=== PATIENT | female | born 1950 | race Caucasian/White ===

== ENCOUNTER 2024-04-22 10:36 | Inpatient (IN) | payer BC, MEDICARE ==
[~2024-04-22] VITALS: Ht 160 cm; Wt 94.3 kg
[~2024-04-22 10:36] MED LIST: AMLO10TA4 PO; ESCI20TA PO; LORA2TAB95 PO; OMEP20CA4 PO
[2024-04-22] MEDS ORDERED: MORPHINE SULFATE INJ 4 MG/ML DISP.SYRIN ONE (10:58)
[2024-04-22] MEDS ORDERED: ONDANSETRON HCL/PF 4 MG/2 ML VIAL ONE (10:58)
[2024-04-22] MEDS: IV NS 0.9% 500 ML BAG IV ONE (11:00)
[2024-04-22] MEDS: ONDANSETRON HCL/PF 4 MG/2 ML VIAL IVP ONE (11:02)
[2024-04-22] MEDS: MORPHINE SULFATE INJ 2 MG/ML DISP.SYRIN IV ONE (11:04)
[2024-04-22 11:06] LABS: BASOPHILS % (AUTO) 0.2 % (0.0-2.0); HEMATOCRIT 32 % (33-45); HEMOGLOBIN 10.5 g/dL (11.5-14.8); LYMPHOCYTES # (AUTO) 1.3 K/uL (0.8-4.8); LYMPHOCYTES % (AUTO) 9.4 % (20.0-44.0); MEAN CORPUSCULAR HEMOGLOBIN 30 PG (26.0-33.0); MEAN CORPUSCULAR HGB CONC 33 g/dl (31.0-36.0); MEAN CORPUSCULAR VOLUME 91 fL (82-100); MONOCYTES # (AUTO) 1.5 K/uL (0.1-1.30); MONOCYTES % (AUTO) 10.6 % (2.0-12.0); NEUTROPHILS # (AUTO) 11.3 K/uL (1.8-8.9); NEUTROPHILS % (AUTO) 79.8 % (43.0-81.0); PLATELET COUNT (AUTO) 618 K/uL (150-450); RED BLOOD CELL COUNT(AUTO) 3.55 MIL/uL (4.0-5.2); RED CELL DISTRIBUTION WIDTH 14.4 % (11.5-15.0); WHITE BLOOD COUNT (AUTO) 14.1 K/uL (4.3-11.0)
[2024-04-22] MEDS ORDERED: IRBE150T28 PO (11:16)
[2024-04-22] MEDS ORDERED: TRAM50TA2 PO (11:16)
[2024-04-22] MEDS ORDERED: LEVO25TA9 PO (11:16)
[2024-04-22] MEDS ORDERED: METO25TA4 PO (11:16)
[2024-04-22] MEDS ORDERED: DIVA500T54 PO (11:16)
[2024-04-22] MEDS ORDERED: SPIR25TA6 PO (11:16)
[2024-04-22] MEDS ORDERED: SUMA100T16 PO (11:16)
[2024-04-22 11:17] LABS: ALANINE AMINOTRANSFERASE 42 U/L (12-78); ALBUMIN 2.5 g/dL (3.4-5.0); ALKALINE PHOSPHATASE 90 U/L (46-116); ASPARTATE AMINOTRANSFERASE 32 U/L (15-37); BILIRUBIN,DIRECT 0.1 mg/dL (0.0-0.2); BILIRUBIN,TOTAL 0.5 mg/dL (0.2-1.0); CARBON DIOXIDE 27 mmol/L (21-32); CHLORIDE 103 mmol/L (98-107); CREATININE 1.1 mg/dL (0.6-1.3); GLUCOSE 119 mg/dL (74-106); POTASSIUM 4.5 mmol/L (3.5-5.1); SODIUM SERUM 136 mmol/L (136-145); TOTAL PROTEIN, SERUM 7.1 g/dL (6.4-8.2); UREA NITROGEN, BLOOD 38 mg/dL (7-18)
[2024-04-22] MEDS ORDERED: APIX5TAB PO (12:07)
[2024-04-22] MEDS: AZITHROMYCIN 500 MG in IV D5W 250 ML IV ONE (12:10)
[2024-04-22 12:16] LABS: APPEARANCE,URINE Clear (CLEAR); BILIRUBIN,URINE Negative (NEGATIVE); BLOOD, URINE Negative Ery/uL (NEGATIVE); COLOR,URINE YELLOW (YELLOW); KETONES,URINE Negative (NEGATIVE); LEUKOCYTE ESTERASE ,URINE Negative (NEGATIVE); NITRITE, URINE Negative (NEGATIVE); PROTEIN,URINE 100 mg/dl (NEGATIVE); UGLUCOSE Negative (NEGATIVE); UROBILINOGEN,URINE 0.2 EU/dL (0.2)
[2024-04-22] MEDS ORDERED: MAG HYDROX/AL HYDROX/SIMETH 30 ML UDC PO PRN (13:00)
[2024-04-22] MEDS ORDERED: ONDANSETRON HCL/PF 4 MG/2 ML VIAL IVP PRN (13:00)
[2024-04-22] MEDS ORDERED: HYDROCODONE/APAP 5/325MG TABLET PO PRN (13:00)
[2024-04-22] MEDS ORDERED: MAGNESIUM HYDROXIDE 30 ML UDC PO PRN (13:00)
[2024-04-22] MEDS ORDERED: Z GUARD REMEDY 4 OZ OINT TP PRN (13:00)
[2024-04-22 13:20] LABS: ADD URINE CULTURE NO; BACTERIA,URINE Rare /HPF (None Seen); RBC,URINE 0-2 /HPF (0-2); SQUAMOUS EPITHELIAL CELL,UR Few /HPF (None Seen); WBC,URINE 0-2 /HPF (0-3)
[2024-04-22] MEDS: PANTOPRAZOLE 40 MG TABLET.DR PO SCH (13:40)
[2024-04-22] MEDS: AZITHROMYCIN 500 MG in IV D5W 250 ML IV SCH (13:41)
[2024-04-22] MEDS: IV NS 0.9% 1,000 ML IV PRN (13:41)
[2024-04-22] MEDS: TRAMADOL HCL 50 MG TABLET PO PRN (13:41)
[2024-04-22 16:00] VITALS: BP 116/78; TEMP 98.2; O2SAT 97
[2024-04-22] MEDS: MORPHINE SULFATE INJ 4 MG/ML DISP.SYRIN IM PRN (16:56)
[2024-04-22 20:00] VITALS: BP 112/57; TEMP 97.5; O2SAT 99
[2024-04-22 21:07] VITALS: BP 112/57; TEMP 97.5; O2SAT 99
[2024-04-23 07:20] LABS: BASOPHILS % (AUTO) 0.3 % (0.0-2.0); EOSINOPHILS # (AUTO) 0.1 K/uL (0.0-0.7); EOSINOPHILS % (AUTO) 0.3 % (0.0-6.0); HEMATOCRIT 30 % (33-45); HEMOGLOBIN 9.7 g/dL (11.5-14.8); LYMPHOCYTES # (AUTO) 2.5 K/uL (0.8-4.8); LYMPHOCYTES % (AUTO) 15.2 % (20.0-44.0); MEAN CORPUSCULAR HEMOGLOBIN 30 PG (26.0-33.0); MEAN CORPUSCULAR HGB CONC 33 g/dl (31.0-36.0); MEAN CORPUSCULAR VOLUME 92 fL (82-100); MONOCYTES # (AUTO) 2.3 K/uL (0.1-1.30); MONOCYTES % (AUTO) 13.8 % (2.0-12.0); NEUTROPHILS # (AUTO) 11.6 K/uL (1.8-8.9); NEUTROPHILS % (AUTO) 70.4 % (43.0-81.0); PLATELET COUNT (AUTO) 567 K/uL (150-450); RED BLOOD CELL COUNT(AUTO) 3.21 MIL/uL (4.0-5.2); RED CELL DISTRIBUTION WIDTH 14.7 % (11.5-15.0); WHITE BLOOD COUNT (AUTO) 16.4 K/uL (4.3-11.0)
[2024-04-23 07:44] LABS: CALCIUM, SERUM 9.2 mg/dL (8.5-10.1); CARBON DIOXIDE 25 mmol/L (21-32); CHLORIDE 105 mmol/L (98-107); GLUCOSE 98 mg/dL (74-106); MAGNESIUM 2.4 mg/dL (1.8-2.4); PHOSPHORUS 2.6 mg/dL (2.5-4.9); POTASSIUM 4.9 mmol/L (3.5-5.1); SODIUM SERUM 139 mmol/L (136-145); UREA NITROGEN, BLOOD 33 mg/dL (7-18)
[2024-04-23 07:47] LABS: CHOLESTEROL 183 mg/dL (<200); HDL CHOLESTEROL 42 mg/dL (40-60); LDL 108 mg/dL (0-99); TRIGLYCERIDES 118 mg/dL (30-150)
[2024-04-23 08:00] VITALS: BP 106/61; TEMP 98.6; O2SAT 98
[2024-04-23 10:07] LABS: EOSINOPHILS % (MANUAL) 1 % (0-4); LYMPHOCYTES % (MANUAL) 13 % (16-48); MONOCYTES % (MANUAL) 7 % (0-11.0); NEUTROPHILS % (MANUAL) 77 (42-76)
[2024-04-23 10:08] LABS: BASOPHILS % (MANUAL) 0 % (0.0-2.0); MYELOCYTES % 1 % (0-0); PLATELET ESTIMATE INCREASED; REACTIVE LYMPHOCYTES 1 % (0-0)
[2024-04-23] MEDS: diphenhydrAMINE HCL/ZINC ACET CREAM 28.3 GM TUBE TP PRN (12:58)
[2024-04-23 16:00] VITALS: BP 122/96; TEMP 98.1; O2SAT 94
[2024-04-23 20:00] VITALS: BP 123/82; TEMP 98.2; O2SAT 93
[2024-04-23] MEDS: ACETAMINOPHEN 325 MG TABLET PO PRN (20:59)
[2024-04-24 07:00] VITALS: BP 118/102; TEMP 98.1; O2SAT 96
[2024-04-24] MEDS ORDERED: LORAZEPAM 1 MG TABLET PO PRN (09:00)
[2024-04-24] MEDS ORDERED: TRAMADOL HCL 50 MG TABLET PO PRN (09:00)
[2024-04-24] MEDS ORDERED: SUMATRIPTAN SUCCINATE 100 MG TABLET PO PRN (09:00)
[2024-04-24] MEDS: ESCITALOPRAM OXALATE (10 MG) 10 MG TABLET PO SCH (09:37)
[2024-04-24] MEDS: LEVOTHYROXINE SODIUM 25 MCG TABLET PO SCH (09:37)
[2024-04-24] MEDS: SPIRONOLACTONE 25 MG TABLET PO SCH (09:37)
[2024-04-24] MEDS: METOPROLOL SUCCINATE 25 MG TAB.SR.24H PO SCH (09:38)
[2024-04-24] MEDS: APIXABAN 5 MG TABLET PO SCH (09:42)
[2024-04-24 16:00] VITALS: BP 108/65; TEMP 98.2; O2SAT 93
[2024-04-25] MEDS ORDERED: DIVALPROEX SODIUM 500 MG TABLET.DR PO SCH (09:00)
[2024-04-25] MEDS ORDERED: LOSARTAN POTASSIUM 50 MG TABLET PO SCH (09:00)
[2024-04-28] MEDS ORDERED: AZITHROMYCIN 250 MG TABLET PO SCH (21:00)
== END 2024-04-24 20:02 | DRG 562 ==
LOC: ER 10:45 → MED 12:13
PROVIDERS: ADMIT Nurse Practitioner Acute Care; ATTEND Nurse Practitioner Acute Care
DX: S42.212A Unspecified displaced fracture of surgical neck of left humerus, initial encounter for closed fracture (principal); J15.69 Pneumonia due to other Gram-negative bacteria; E44.1 Mild protein-calorie malnutrition; E03.9 Hypothyroidism, unspecified; D75.839 Thrombocytosis, unspecified; K21.9 Gastro-esophageal reflux disease without esophagitis; W01.0XXA Fall on same level from slipping, tripping and stumbling without subsequent striking against object, initial encounter; E66.9 Obesity, unspecified; E88.09 Other disorders of plasma-protein metabolism, not elsewhere classified; F41.9 Anxiety disorder, unspecified; I10 Essential (primary) hypertension; D72.829 Elevated white blood cell count, unspecified; Z68.36 Body mass index [BMI] 36.0-36.9, adult; R53.1 Weakness; Y93.9 Activity, unspecified; Y92.009 Unspecified place in unspecified non-institutional (private) residence as the place of occurrence of the external cause; Z88.0 Allergy status to penicillin
CPT/HCPCS: 36415; 70450-TC; 71045-TC; 73030-TC; 73060-TC; 80048-TC; 80061-TC; 80076-TC; 81001; 83735-TC; 84100-TC; 84443-TC; 84484-TC; 85025-TC; 86850-TC; 97112-TC; 97116-TC; 97530-TC; A4223; G0378; J0456; J2270; J2405; J7040; J7060